=== PATIENT | female | born 1965 | race Caucasian/White ===

== ENCOUNTER → 2021-02-12 03:07 | Outpatient (CLI) | payer BC, SELFPAY ==
[2021-02-12 17:42] LABS: SARS-CoV-2 RNA PCR Negative
== END ==
PROVIDERS: PCP Family Medicine; Visit Provider Family Medicine
DX: R05.9 Cough, unspecified (principal); R09.89 Other specified symptoms and signs involving the circulatory and respiratory systems; R19.7 Diarrhea, unspecified; Z20.822 Contact with and (suspected) exposure to COVID-19
CPT/HCPCS: C9803; U0003; U0005

== ENCOUNTER 2021-07-06 00:25 | Day surgery (SDC) | payer BC, SELFPAY ==
[2021-06-26 12:34] VITALS: BMI 24.5
[2021-07-06 09:08] VITALS: BP 131/70; PULSE 88; RESP 16; TEMP 35.8; O2SAT 100
[2021-07-06] MEDS: LACTATED RINGERS 1,000 ML 150 ML IV CONT (09:11)
--- NOTE | 2021-07-06 09:30 | P.PNAN_ITS ---
Anes - Initial Pre Proc Eval Procedure: Operation Date: 07/06/21 10:00 Proposed Procedures p Screening Colonoscopy - Franky Dominguez MD Date/Time: 07/06/21 09:30 Surgeon: Franky Dominguez MD Pre Op Diagnosis: neoplasm screening Patient Data Age: 56 Gender: F Height: 1.8 m Weight: 83.6 kg Last Vital Signs Temp 35.8 C L 07/06/21 09:08 Pulse 88 07/06/21 09:08 Resp 16 07/06/21 09:08 BP 131/70 07/06/21 09:08 Pulse Ox 100 07/06/21 09:08 Allergies Allergy/AdvReac Type Severity Reaction Status Date / Time Sulfa (Sulfonamide Allergy Unknown Unknown Verified 07/06/21 09:07 Antibiotics) Home Medications Medication Instructions Recorded Confirmed Type spironolactone 100 mg tablet 100 mg PO DAILY 06/13/19 07/06/21 History zolpidem 10 mg tablet 10 mg PO .QHS PRN #90 tablet 03/25/21 07/06/21 Rx cyclobenzaprine 10 mg tablet 10 mg PO TID PRN #90 tablet 05/18/21 07/06/21 Rx omeprazole 20 mg capsule,delayed 20 mg PO DAILY #90 cap 06/22/21 07/06/21 Rx release Patient hx anesthesia problems: none Family hx anesthesia problems: none Results Review: All pre-operative results and documents have been reviewed as part of the pre-operative evaluation. [facility] Past Medical History Medical History Acne GERD without esophagitis Hx of peptic ulcer Insomnia Neck stiffness Peptic ulcer with perforation 2007 Pre-diabetes Skin tag Surgical History Surgical History History of carpal tunnel surgery of right wrist 01/2018 History of exploratory laparotomy 2007 for perforated peptic ulcer History of hernia repair incisional hernia 03/2009 History of skin surgery skin tag removal 2017 [place] teeth extracted Family History Family History Mother Family history of lung cancer Social History Social History Smoking status: Never smoker Alcohol intake: current Substance use: never Substance use type: does not use Living arrangements: with family Gender identity (if verbalized by the patient): Female Anes - Eval Final PreProcedure Day of Procedure 07/06/21 09:30 Patient weight: overweight Heart: regular rate and rhythm Lungs: clear to auscultation Airway: Mallampati scale class II Neurological: alert and oriented Last oral intake: >/= 8 hours ASA classification: II Emergent: no Anesthetic plan: proceed Anesthesia type and monitoring: general GIVS and standard monitoring Results Review: All pre-operative results and documents have been reviewed as part of the pre-operative evaluation. Informed Consent: The patient's anesthetic plan and its attendant risks and benefits were discussed with the patient/family/POA. Questions were solicited and answers provided to the satisfaction of the patient/family/POA.
--- NOTE | 2021-07-06 09:49 | PM.HPGS ---
History of Present Illness History of Present Illness Consent: Risks, benefits, and alternatives have been discussed and questions answered. Patient agrees to proceed with procedure. Chief complaint: neoplasm screening Narrative: Lydia Mary is a 56 year old female here for first screening colonoscopy Review of Systems Constitutional: Constitutional: Denies headache(s) and Denies weakness Eyes: Eyes: Denies blurry vision ENT: Reports Normal hearing present, Denies headache(s) and Denies neck pain Cardiovascular: Cardiovascular: Denies chest pain and Denies dyspnea Respiratory: Respiratory: Denies dyspnea Gastrointestinal: Gastrointestinal: Reports no additional gastrointestinal complaints Genitourinary: Genitourinary: Denies dysuria Musculoskeletal: Musculoskeletal: Denies neck pain Integumentary/Breasts: Skin/Breast: Denies dry skin Neurologic: Reports Normal hearing present, Denies headache(s) and Denies weakness Psychiatric: Psychiatric: Denies anxiety Endocrine: Endocrine: Denies change in body appearance Hematologic/Lymphatic: Hematologic/Lymphatic: Denies easy bleeding Allergic/Immunologic: Allergic/Immunologic: Denies urticaria [facility] Past Medical History Medical History (Updated 07/06/21 @ 09:49 by Franky Dominguez MD) Acne Colon cancer screening GERD without esophagitis Hx of peptic ulcer Insomnia Neck stiffness Peptic ulcer with perforation 2007 Pre-diabetes Skin tag Surgical History Surgical History History of carpal tunnel surgery of right wrist 01/2018 History of exploratory laparotomy 2007 for perforated peptic ulcer History of hernia repair incisional hernia 03/2009 History of skin surgery skin tag removal 2016 [place] teeth extracted Family History Family History Mother Family history of lung cancer Social History Social History Smoking status: Never smoker Alcohol intake: current Substance use: never Substance use type: does not use Living arrangements: with family Gender identity (if verbalized by the patient): Female Meds Home Medications and Allergies Home Medications Medication Instructions Recorded Confirmed Type spironolactone 100 mg tablet 100 mg PO DAILY 06/13/19 07/06/21 History zolpidem 10 mg tablet 10 mg PO .QHS PRN #90 tablet 12/01/21 03/14/22 Rx cyclobenzaprine 10 mg tablet 10 mg PO TID PRN #90 tablet 05/18/21 07/06/21 Rx omeprazole 20 mg capsule,delayed 20 mg PO DAILY #90 cap 06/22/21 07/06/21 Rx release Allergies Allergy/AdvReac Type Severity Reaction Status Date / Time Sulfa (Sulfonamide Allergy Unknown Unknown Verified 07/06/21 09:07 Antibiotics) Vital Signs Vital Signs - 24 hr 07/06/21 09:08 Temperature 96.5 F L Pulse Rate 88 Respiratory Rate 16 Blood Pressure 131/70 Pulse Oximetry 100 Exam Const: General: comfortable and no acute distress HENMT: General nose exam: Normal nares present Eyes: General: appearance normal, both eyes and all related structures Neck: Neck: no JVD Resp: Auscultation: clear to auscultation bilaterally Cardio: Rate: regular rate Rhythm: regular rhythm GI: Inspection: non-distended GI Palp: Yes Soft to palpation Skin: General skin exam: normal color Neuro: General: gait normal Speech: normal speech Extrem: General: normal to inspection Psych: Mental Status: mental status grossly normal Assessment and Plan Assessment and plan (1) Colon cancer screening: Code(s): Z12.11 - Encounter for screening for malignant neoplasm of colon Status: Acute Assessment and Plan: colonoscopy
[2021-07-06 10:14] VITALS: BP 111/80; PULSE 84; RESP 20; O2SAT 100
[2021-07-06 10:24] VITALS: BP 109/86; PULSE 68; RESP 18; O2SAT 100
[2021-07-06 10:34] VITALS: BP 120/74; PULSE 74; RESP 20; O2SAT 100
== END 2021-07-06 10:50 | disposition home or self-care (01) ==
PROVIDERS: PCP Family Medicine; Visit Provider Internal Medicine Gastroenterology
PROC: 0DJD8ZZ Inspection of Lower Intestinal Tract, Via Natural or Artificial Opening Endoscopic (ICD-10-PCS; CPT 45378; principal; 2021-07-06 10:00)
DX: Z12.11 Encounter for screening for malignant neoplasm of colon (principal); K64.8 Other hemorrhoids; K21.9 Gastro-esophageal reflux disease without esophagitis; G47.00 Insomnia, unspecified; R73.03 Prediabetes; Z87.11 Personal history of peptic ulcer disease
CPT/HCPCS: 45378; J2704; J7120

== ENCOUNTER 2022-01-14 14:50 | Outpatient (CLI) | payer BC, SELFPAY ==
--- NOTE | ~2022-01-14 | MM_ITS ---
EXAMINATION: MM screening kelly BI w you HISTORY: Screening mammogram TECHNIQUE: Craniocaudal and mediolateral oblique 3-D tomosynthesis images were obtained and synthetic 2-D images were generated. CAD analysis was submitted and interpreted. COMPARISON: No prior mammogram is available for comparison at this institution. BREAST PARENCHYMAL COMPOSITION: The breasts are heterogeneously dense, which may obscure small masses . FINDINGS: RIGHT BREAST: An asymmetry is present in the middle third of the inner breast on the craniocaudal vie w. LEFT BREAST: There is no suspicious mass, calcification, or architectural distortion to suggest malig jerson. IMPRESSION: 1. Right breast asymmetry which may represent the patient's baseline however no comparison is current ly available. 2. Comparison with prior mammograms is necessary. BI-RADS Category 0: Incomplete: Needs comparison with prior mammograms. Reviewed, dictated and finalized at location A. IMPRESSION: 1. Right breast asymmetry which may represent the patient's baseline however no comparison is currently available. 2. Comparison with prior mammograms is necessary. BI-RADS Category 0: Incomplete: Needs comparison with prior mammograms.
== END 2022-01-14 14:51 | disposition home or self-care (01) ==
PROVIDERS: PCP Family Medicine
DX: Z12.31 Encounter for screening mammogram for malignant neoplasm of breast (principal); R92.8 Other abnormal and inconclusive findings on diagnostic imaging of breast
CPT/HCPCS: 77063; 77067

== ENCOUNTER 2023-03-09 14:34 | Outpatient (CLI) | payer BC, SELFPAY ==
--- NOTE | ~2023-03-09 | MM_ITS ---
EXAMINATION: MM screening [facility] BI w you HISTORY: Screening mammogram TECHNIQUE: Craniocaudal and mediolateral oblique 3-D tomosynthesis images were obtained and synthetic 2-D images were generated. CAD analysis was submitted and interpreted. COMPARISON: 01/14/2022, 04/08/2017, 03/05/2016 BREAST PARENCHYMAL COMPOSITION: The breasts are heterogeneously dense, which may obscure small masses . FINDINGS: An asymmetry is again noted in the middle third of the inner right breast on the craniocaud al view. No suspicious mass, calcification, or architectural distortion are identified in either [address] to suggest malignancy. There has been no suspicious interval change. IMPRESSION: 1. No mammographic evidence of malignancy. 2. Recommend routine screening mammography in one year. BI-RADS Category 2: Benign finding(s). Reviewed, dictated and finalized at location A. TOOLING TECHNICIAN
== END 2023-03-09 14:35 | disposition home or self-care (01) ==
LOC: ANHIMG 14:37
PROVIDERS: PCP Family Medicine
DX: Z12.31 Encounter for screening mammogram for malignant neoplasm of breast (principal)
CPT/HCPCS: 77063; 77067

== ENCOUNTER 2023-09-21 11:55 | Outpatient (CLI) | payer BC, SELFPAY ==
--- NOTE | ~2023-09-21 | XR_ITS ---
Right Hand Technique: PA and lateral views were obtained. Clinical History: Polyarthralgia Findings: No acute fracture or dislocation is seen. Osseous alignment is anatomic. Joint spaces are p reserved. Soft tissues are unremarkable. Impression: Unremarkable right hand. Reviewed, dictated and finalized at location M. Impression: Unremarkable right hand.
--- NOTE | ~2023-09-21 | XR_ITS ---
Left Hand Technique: PA and lateral views were obtained. Clinical History: Polyarthralgia Findings: No acute fracture or dislocation is seen. Osseous alignment is anatomic. Joint spaces are p reserved. Soft tissues are unremarkable. Impression: Unremarkable left hand. Reviewed, dictated and finalized at location M. Impression: Unremarkable left hand.
== END 2023-09-21 11:56 ==
LOC: GOSHIMG 11:57
PROVIDERS: PCP Family Medicine; Visit Provider Emergency Medicine Emergency Medical Services
DX: M25.50 Pain in unspecified joint (principal); M25.40 Effusion, unspecified joint
CPT/HCPCS: 73120

== ENCOUNTER 2024-03-21 15:27 | Outpatient (CLI) | payer BC, SELFPAY ==
--- NOTE | ~2024-03-21 | MM_ITS ---
EXAMINATION: MM screening [facility] BI w you HISTORY: Screening TECHNIQUE: Craniocaudal and mediolateral oblique 3-D tomosynthesis images were obtained and synthetic 2-D images were generated. CAD analysis was submitted and interpreted. COMPARISON: Comparison to multiple prior studies sequentially, with oldest reviewed study dated 02/23. BREAST PARENCHYMAL COMPOSITION: Dense: The breasts are heterogeneously dense, which may obscure small masses FINDINGS: There is a focal obscured asymmetry in the upper inner quadrant of the right breast, middle third. The left breast is stable without evidence for malignancy. IMPRESSION: 1. Focal obscured asymmetry in the upper inner quadrant of the right breast, middle third. 2. Additional mammographic views and possible breast ultrasound are recommended. BI-RADS Category 0: Incomplete: Needs additional imaging evaluation. Reviewed, dictated and finalized at location B. APPLICATIONS ANALYST IMPRESSION: 1. Focal obscured asymmetry in the upper inner quadrant of the right breast, mi ddle third. 2. Additional mammographic views and possible breast ultrasound are recommended . BI-RADS Category 0: Incomplete: Needs additional imaging evaluation.
== END 2024-03-21 15:28 | disposition home or self-care (01) ==
LOC: ANHIMG 15:30
PROVIDERS: PCP Family Medicine
DX: Z12.31 Encounter for screening mammogram for malignant neoplasm of breast (principal); N64.89 Other specified disorders of breast
CPT/HCPCS: 77063; 77067

== ENCOUNTER 2024-04-02 13:18 | Outpatient (CLI) | payer BC, SELFPAY ==
--- NOTE | ~2024-04-02 | MMUS_ITS ---
EXAMINATION: MM diagnostic kelly RT w you, US breast RT complete HISTORY: Follow-up right breast asymmetry TECHNIQUE: Additional 3-D tomosynthesis images of the right breast were performed and synthetic 2-D i mages were generated. CAD analysis was submitted and interpreted. High resolution complete right [address] ultrasound was performed. COMPARISON: Comparison to multiple prior studies sequentially, with oldest reviewed study dated 02/23. BREAST PARENCHYMAL COMPOSITION: Dense: The breasts are heterogeneously dense, which may obscure small masses FINDINGS: MAMMOGRAPHIC FINDINGS: Focal asymmetry in the right breast seen on prior examination compress with spot views, compatible wi th superimposed fibroglandular tissue. ULTRASOUND: Complete US of all 4 quadrants of the right breast/s and retroareolar region was reviewed. Normal het erogeneous echotexture without focal solid or cystic mass. IMPRESSION: 1. No evidence for malignancy in the right breast. 2. Routine yearly screening mammogram and regular clinical breast examination are recommended. BI-RADS Category 1: Negative Reviewed, dictated and finalized at location B. RIAL REQUIREMENTS PLANNING MANAGER IMPRESSION: 1. No evidence for malignancy in the right breast. 2. Routine yearly screening mammogram and regular clinical breast examination a re recommended. BI-RADS Category 1: Negative
== END 2024-04-02 13:19 | disposition home or self-care (01) ==
PROVIDERS: PCP Family Medicine
DX: R92.8 Other abnormal and inconclusive findings on diagnostic imaging of breast (principal)
CPT/HCPCS: 76641; 77061; 77065; G0279

== ENCOUNTER 2025-03-29 14:30 | Outpatient (CLI) | payer BC, SELFPAY ==
--- NOTE | ~2025-03-29 | MM_ITS ---
EXAMINATION: MM screening kelly BI w you HISTORY: Screening. TECHNIQUE: Craniocaudal and mediolateral oblique 3-D tomosynthesis images were obtained and synthetic 2-D images were generated. CAD analysis was submitted and interpreted. COMPARISON: 2023, 2022, and 2021. BREAST PARENCHYMAL COMPOSITION: Dense: The breasts are extremely dense FINDINGS: There is an asymmetry seen on the right CC view laterally. There are no suspicious calcifications. No unexplained architectural distortion is seen. There are no skin or nipple abnormalities identified. There is no adenopathy seen on the images submitted. IMPRESSION: Asymmetry on the right for which additional imaging is recommended. BI-RADS 0 - Incomplete - needs additional imaging evaluation and/or prior mammograms for comparison. Reviewed, dictated and finalized at location B. ITIES OPERATOR IMPRESSION: Asymmetry on the right for which additional imaging is recommended. BI-RADS 0 - Incomplete - needs additional imaging evaluation and/or prior mammo grams for comparison.
== END 2025-03-29 14:31 | disposition home or self-care (01) ==
LOC: ANHFOHIMG 14:33
PROVIDERS: PCP Family Medicine
DX: Z12.31 Encounter for screening mammogram for malignant neoplasm of breast (principal); R92.8 Other abnormal and inconclusive findings on diagnostic imaging of breast
CPT/HCPCS: 77063; 77067